=== PATIENT | male | born 1955 | race Caucasian/White ===

== ENCOUNTER → 2016-08-27 | Day surgery (SDC) | payer OTHER ==
[~2016-08-27] MED LIST: BUPIVACAINE HCL 0.5% MPF 10 ML SOL INFIL ONE; CEFAZOLIN SODIUM 1 GM PDS 2 GM in SODIUM CHLORIDE 0.9% 100 ML 100 ML IV ONE; LIDOCAINE HCL 1% MDV SOL SC ONE; LIDOCAINE HCL 1% MPF SOL ONE; LIDOCAINE HCL 2% (100 MG) CARP IV ONE; LIDOCAINE HCL 2% MPF SOL ONE
[2016-08-27] MEDS: BUPIVACAINE HCL 0.5% MPF 10 ML SOL ONE ×2 (12:11→12:20)
[2016-08-27] MEDS: LIDOCAINE HCL 2% MPF SOL ONE ×2 (12:12→12:20)
[2016-08-27 13:35] VITALS: TEMP 97.5
[2016-08-27 13:43] VITALS: BP 113/79; PULSE 68; RESP 16; O2SAT 91
== END | disposition home or self-care (01) | DRG 563 ==
LOC: SURG 10:27 → EDSTATUS 12:01 → SURG 12:02 → EDSTATUS 19:55
PROVIDERS: ATTEND Emergency Medicine
DX: S63.284A Dislocation of proximal interphalangeal joint of right ring finger, initial encounter (principal); M24.241 Disorder of ligament, right hand; S63.434A Traumatic rupture of volar plate of right ring finger at metacarpophalangeal and interphalangeal joint, initial encounter; S61.224A Laceration with foreign body of right ring finger without damage to nail, initial encounter; S61.421A Laceration with foreign body of right hand, initial encounter; W31.1XXA Contact with metalworking machines, initial encounter
CPT/HCPCS: 73130; 73140; 76000; J0690; J1885; J2001; J2250; J2405; J3010; A6402; J2704